=== PATIENT | male | born 1985 | race Caucasian/White ===

== ENCOUNTER 2020-02-07 11:58 | Emergency (ER) | payer SELFPAY ==
[~2020-02-07] VITALS: Ht 190.5 cm; Wt 133.6 kg
--- NOTE | 2020-02-07 12:45 | REP ---
INDICATION: right ankle pain s/p fall COMPARISON: None. TECHNIQUE: AP, lateral, bilateral oblique views. FINDINGS: There is an mildly displaced oblique fracture of the distal fibular metaphysis and fracture of the posterior malleolus with overlying soft tissue swelling. IMPRESSION: Fractures of the distal fibular metaphysis and posterior malleolus with overlying soft tissue swelling. <Electronically signed by Maynor Gurrola > 02/07/20 [id number]
--- NOTE | 2020-02-07 13:21 | REP ---
INDICATION: further evaluate RLE injury; ortho request COMPARISON: None. TECHNIQUE: AP, lateral, bilateral oblique and sunrise views. FINDINGS: The osseous structures and joint spaces are intact and normal. There is no evidence for acute fracture or dislocation. No joint effusion is appreciated. Surrounding soft tissues are unremarkable. No subcutaneous emphysema or radiodense foreign body. IMPRESSION: Normal examination. No acute fracture or dislocation. <Electronically signed by Maynor Gurrola > 02/07/20 [id number]
--- NOTE | 2020-02-07 13:22 | REP ---
INDICATION: further evaluate RLE injury; ortho request COMPARISON: None. TECHNIQUE: AP, lateral views of the right tibia/fibula. FINDINGS: There is an oblique fracture the distal fibular metaphysis and mildly displaced posterior malleolar fracture. IMPRESSION: Fracture of the posterior malleolus and distal fibular metaphysis. <Electronically signed by Maynor Gurrola > 02/07/20 [id number]
--- NOTE | 2020-02-07 16:09 | REP ---
INDICATION: post reduction COMPARISON: 02/07/2020 at 12:28 p.m. TECHNIQUE: Portable AP and lateral views of the right ankle. FINDINGS: Patient is status post cast placement for oblique distal fibular metaphyseal and posterior malleolar fractures. IMPRESSION: Status post cast placement for fibular and posterior malleolar fractures. <Electronically signed by Maynor Gurrola > 02/07/20 [id number]
--- NOTE | 2020-02-07 17:12 | REP ---
INDICATION: further evaluate right ankle. COMPARISON: None. TECHNIQUE: Axial noncontrast images through the right ankle with coronal and sagittal reformations. This CT examination was performed using the following dose reduction techniques: Automated exposure control, adjustment of mA and/or kv according to the patient's size, and use of iterative reconstruction technique. FINDINGS: There is an oblique nondisplaced fracture through the distal fibular metaphysis extending to the fibular tip. There is a somewhat comminuted fracture of the posterior malleolus extending through the posterior aspect of the articular surface of the distal tibia. Surrounding intra-articular posttraumatic infiltration and suspected small amount of hemarthrosis noted. Talus, calcaneus, tarsal bones, and visualized portions of the metatarsal bones are intact. IMPRESSION: Fractures of the distal fibula/lateral malleolus and posterior malleolus. <Electronically signed by Maynor Gurrola > 02/07/20 0232
[2020-02-07] MEDS ORDERED: NORC1TAB7 PO (17:29)
[2020-02-07 17:36] VITALS: BP 122/72
--- NOTE | 2020-02-08 10:26 | CR ---
CONSULTATION DATE: 02/07/2020 CONSULTING SERVICE: Orthopedic surgery. CONSULTING PHYSICIAN: Naun Glass M.D. HISTORY OF PRESENT ILLNESS: This is a 34-year-old male with a right bimalleolar ankle fracture closed, which was sustained with a ground level fall after slipping on ice on 02/07/2020. The patient presented to the [facility] for further evaluation and treatment regarding his right ankle distal fibular fracture and posterior malleolus fracture. The patient underwent the appropriate radiographs of the right ankle, right leg, and right knee. Orthopedic surgery was consulted for further evaluation and treatment. PAST MEDICAL HISTORY: Denies. PAST SURGICAL HISTORY: Dental surgery. MEDICATION ALLERGIES: None reported. CURRENT MEDICATIONS: None. SOCIAL HISTORY: This is a half-pack a day smoker with a 10-pack year history. The patient reportedly drinks 14-18 beers daily and denies IV drug use. REVIEW OF SYSTEMS: A 14-point review of systems is negative unless is otherwise described in the HPI above. PHYSICAL EXAMINATION: The patient was alert to person, time, and place. On right lower extremity exam, the patient has 2+ dorsalis pedis and posterior tibial arterial pulse. He had significant swelling about the right ankle. The patient had ecchymosis about the lateral aspect of his right ankle. The patient had 5/5 motor strength to the EHL, FHL, tibial, gastroc, and peroneal musculature. He had sensation intact to light touch to the deep and superficial peroneal, sural, saphenous, and tibial nerve distributions. IMAGING: Radiographs of the patient's right ankle demonstrate a spiral fracture of the distal fibula, as well as posterior malleolus fracture of the distal tibia. There was some mild lateral translation of the talus with some tibiofibular clear space appreciated. Post-reduction radiographs demonstrate the talus, which is appropriately reduced within the mortise. The lateral projection demonstrates the talus to be reduced within the mortise with a splint appropriately placed in appropriate dorsiflexion. The patient underwent post-reduction radiographs, which demonstrated appropriately reduced ankle. The patient did undergo advanced imaging with a CT of the right ankle demonstrating posterior malleolus consisting of approximately 20% of the articular surface with a spiral fracture of the distal fibula. IMPRESSION: This is a 34-year-old male with a right ankle bimalleolar fracture, which will likely require open reduction internal fixation after 10-14 days and after the right ankle swelling subsides. PLAN: This patient with a right ankle bimalleolar fracture will require open reduction internal fixation of the patient's right ankle injury. However, given the swelling, this will be done within 10-14 days. The patient was appropriately reduce and placed in an L&U splint with appropriate padding. The patient will follow-up with [facility] within 7 days for preoperative planning for the aforementioned open reduction internal fixation, which will likely be required, for the patient's right ankle injury. The patient was discharged home with the appropriate follow-up instructions from [facility].
== END 2020-02-07 17:44 | disposition home or self-care (01) ==
LOC: M ED 11:58 → EDBD 11:58 → M ED 17:44
DX: S82.841A Displaced bimalleolar fracture of right lower leg, initial encounter for closed fracture (principal); W00.0XXA Fall on same level due to ice and snow, initial encounter; Y92.018 Other place in single-family (private) house as the place of occurrence of the external cause; F17.210 Nicotine dependence, cigarettes, uncomplicated
CPT/HCPCS: 27810; 73564; 73590; 73600; 73610; 73700; 99284; U0002

== ENCOUNTER → 2020-02-24 | Outpatient (CLI) | payer SELFPAY ==
[~2020-02-24] MED LIST: NORC1TAB7 PO
== END ==
LOC: M LABSMTC 09:50
PROVIDERS: ATTEND Anesthesiology
DX: Z01.812 Encounter for preprocedural laboratory examination (principal); Z20.822 Contact with and (suspected) exposure to COVID-19

== ENCOUNTER 2020-02-26 14:34 | Day surgery (SDC) | payer SELFPAY ==
[~2020-02-26] VITALS: Ht 190.5 cm; Wt 136.0 kg
[~2020-02-26 14:34] MED LIST changes: +LIDOCAINE 1% MDV 20ML VIAL SQ PRN; +LR 1,000 ML IV ONE; +ceFAZolin SOD 2 GM in IV 1 EA IV ONE
--- OUTSIDE RECORDS SUMMARY | 2020-02-26 14:38 | CCD ---
Author Author [facility] Organization [facility] Address Unknown Phone Unavailable Care Team Providers Care Medical Surgical Tech Name Role Phone MCELHERAN, SANDRO PA Unavailable Unavailable MCELHERAN, SANDRO PA Unavailable Unavailable MCELHERAN, SANDRO PA Unavailable Unavailable MCELHERAN, SANDRO PA Unavailable Unavailable MCELHERAN, SANDRO PA Unavailable Unavailable MCELHERAN, SANDRO PA Unavailable Unavailable MCELHERAN, SANDRO PA Unavailable Unavailable MCELHERAN, SANDRO PA Unavailable Unavailable MCELHERAN, SANDRO PA Unavailable Unavailable MCELHERAN, SANDRO PA Unavailable Unavailable MCELHERAN, SANDRO PA Unavailable Unavailable MCELHERAN, SANDRO PA Unavailable Unavailable MCELHERAN, SANDRO PA Unavailable Unavailable MCELHERAN, SANDRO PA Unavailable Unavailable MCELHERAN, SANDRO PA Unavailable Unavailable MCELHERAN, SANDRO PA Unavailable Unavailable MCELHERAN, SANDRO PA Unavailable Unavailable MCELHERAN, SANDRO PA Unavailable Unavailable MCELHERAN, SANDRO PA Unavailable Unavailable MCELHERAN, SANDRO PA Unavailable Unavailable MCELHERAN, SANDRO PA Unavailable Unavailable MCELHERAN, SANDRO PA Unavailable Unavailable MCELHERAN, SANDRO PA Unavailable Unavailable MCELHERAN, SANDRO PA Unavailable Unavailable MCELHERAN, SANDRO PA Unavailable Unavailable MCELHERAN, SANDRO PA Unavailable Unavailable MCELHERAN, SANDRO PA Unavailable Unavailable MCELHERAN, SANDRO PA Unavailable Unavailable EMMA CASTILLO MD Unavailable Unavailable EMMA CASTILLO MD Unavailable Unavailable EMMA CASTILLO MD Unavailable Unavailable EMMA CASTILLO MD Unavailable Unavailable EMMA CASTILLO MD Unavailable Unavailable EMMA CASTILLO MD Unavailable Unavailable EMMA CASTILLO MD Unavailable Unavailable EMMA CASTILLO MD Unavailable Unavailable EMMA CASTILLO MD Unavailable Unavailable EMMA CASTILLO MD Unavailable Unavailable EMMA CASTILLO MD Unavailable Unavailable EMMA CASTILLO MD Unavailable Unavailable MARKWITH, EMMA MD Unavailable Unavailable MARKWITH, EMMA MD Unavailable Unavailable MARKWITH, EMMA MD Unavailable Unavailable MARKWITH, EMMA MD Unavailable Unavailable MARKWITH, EMMA MD Unavailable Unavailable MARKWITH, EMMA MD Unavailable Unavailable MARKWITH, EMMA MD Unavailable Unavailable MARKWITH, EMMA MD Unavailable Unavailable MARKWITH, EMMA MD Unavailable Unavailable MARKWITH, EMMA MD Unavailable Unavailable MARKWITH, EMMA MD Unavailable Unavailable MARKWITH, EMMA MD Unavailable Unavailable MARKWITH, EMMA MD Unavailable Unavailable MARKWITH, EMMA MD Unavailable Unavailable MARKWITH, EMMA MD Unavailable Unavailable MARKWITH, EMMA MD Unavailable Unavailable MARKWITH, EMMA MD Unavailable Unavailable MARKWITH, EMMA MD Unavailable Unavailable MARKWITH, EMMA MD Unavailable Unavailable MARKWITH, EMMA MD Unavailable Unavailable MARKWITH, EMMA MD Unavailable Unavailable Re-disclosure Warning The records that you are about to access may contain information from federally-assisted alcohol or drug abuse programs. If such information is present, then the following federally mandated warning applies: This information has been disclosed to you from records protected by federal confidentiality rules (42 CFR part 2). The federal rules prohibit you from making any further disclosure of this information unless further disclosure is expressly permitted by the written consent of the person to whom it pertains or as otherwise permitted by 42 CFR part 2. A general authorization for the release of medical or other information is NOT sufficient for this purpose. The Federal rules restrict any use of the information to criminally investigate or prosecute any alcohol or drug abuse patient.The records that you are about to access may contain highly sensitive health information, the redisclosure of which is protected by Article 27-F of the [facility] Public Health law. If you continue you may have access to information: Regarding HIV / AIDS; Provided by facilities licensed or operated by the [facility] Office of Mental Health; or Provided by the [facility] Office for People With Developmental Disabilities. If such information is present, then the following [facility] mandated warning applies: This information has been disclosed to you from confidential records which are protected by state law. State law prohibits you from making any further disclosure of this information without the specific written consent of the person to whom it pertains, or as otherwise permitted by law. Any unauthorized further disclosure in violation of state law may result in a fine or care home sentence or both. A general authorization for the release of medical or other information is NOT sufficient authorization for further disc losure. Encounters Encounter Providers Location Date Indications Data Source(s ) Office Visit Attender: SANDRO BOATENG Physical Therapy 02/19/2020 08:45:00 AM EST [facility] ([facility]) Office Visit Attender: SANDRO BOATENG Physical Therapy 02/10/2020 08:30:00 AM EST [facility] ([facility]) Outpatient Attender: EMMA CASTILLO MD Physical Therapy 03:24:00 PM EST [facility] ([facility]) Medications Medication Brand Name Start Date Product Form Dose Route Admi nistrative Instructions Pharmacy Instructions Status Indications Reaction Description Data Source(s) 5-325 mg 02/07/2020 12:00:00 AM EST tablet 15 TAKE ONE TABLET BY MOUTH THREE TIMES A DAY NEEDED FOR PAIN MAX=3TABS/DAY TAKE ONE TABLET BY MOUTH THREE TIMES A DAY NEEDED FOR PAIN MAX=3TABS/DAY SOLD: 02/08/2020 [facility] Insurance Providers Payer name Policy type / Coverage type Policy ID Covered democrat ID Covered democrat's relationship to nelson Policy Nelson Plan Information SELF PAY ONLY [id number] Surgeries/Procedures Procedure Description Date Indications Data Source(s) APPLICATION SHORT LEG CAST BELOW KNEE-TOE 02/19/2020 1 2:00:00 AM EST [facility] ([facility]) RADEX ANKLE COMPLETE MINIMUM 3 VIEWS 02/19/2020 12:00: 00 AM EST [facility] ([facility]) FX Bimalleolar Ankle W/Manipulation 02/07/2020 12:00:0 0 AM EST [facility] ([facility]) Results ID Date Data Source [id number] 02/24/2020 09:45:00 AM EST [facility] Name Value Range Interpretation Code Description Data Verito rce(s) Supporting Document(s) SARS coronavirus 2 RNA [Presence] in Res piratory specimen by [facility]CL[facility] with probe detection NEGATIVE [facility] This lab was ordered by [facility] a nd reported by [facility]. ID Date Data Source [id number] 02/07/2020 01:18:00 PM EST [facility] Name Value Range Interpretation Code Description Data Verito rce(s) Supporting Document(s) SARS coronavirus 2 RNA [Presence] in Res piratory specimen by [facility]CL[facility] with probe detection [facility] This lab was ordered by [facility] a nd reported by [facility]. Procedure Vital Signs ID Date Data Source UNK Name Value Range Interpretation Code Description Data Source(s) Body temperature 97.3 [degF] 97.3 [degF] [facility] ([facility]) Body mass index (BMI) [Ratio] 36.6 kg/m2 36.6 k g/m2 [facility] ([facility]) Body weight 293.00 [lb_av] 293.00 [lb_av] [facility] ([facility]) Body height 75 [in_i] 75 [in_i] [facility] ([facility]) 6'3" Body temperature 97.0 [degF] 97.0 [degF] [facility] ([facility])
--- OUTSIDE RECORDS SUMMARY | 2020-02-26 14:38 | CCD | Continuity of Care Document ---
Author Author Dandre GONZALEZ MD Organization Unknown Address [address] [place] [id number] Phone [phone] Care Team Providers Care Macadam Raker Name Role Phone Richar Pedraza MD AUT Unavailable Problems Description No Information Available Social History Type Date Description Comments Sex Unknown Cigarette Use current cigarette smoker Tobacco Use Start: Unknown Patient is a current cigarette smoker, smokes every day ETOH Use Currently consumes alcohol Allergies, Adverse Reactions, Alerts Description No Known Drug Allergies Medications Description No Information Available Immunizations Description No Information Available Vital Signs Date Vital Result Comment 02/19/2020 10:07am Body Temperature 97.3 F 02/10/2020 9:47am Body Temperature 97.0 F Height 75 inches 6'3" Weight 293.00 lb BMI (Body Mass Index) 36.6 kg/m2 Results Description No Information Available Procedures Date Code Description Status 02/19/2020 54271 X-Ray Ankle Complete Completed 02/19/2020 15195 Apply Cast Short Leg Completed 02/07/2020 86918 FX Bimalleolar Ankle W/Manipulat ion Completed Medical Devices Description No Information Available Encounters Type Date Location Provider Dx Diagnosis Office Visit 02/19/2020 9:45a [facility] S82.841D Displ bimalleol fx r low leg, subs for clos fx w routn heal Office Visit 02/10/2020 9:30a [facility] S82.841D Displ bimalleol fx r low leg, subs for clos fx w routn heal Office Visit 02/07/2020 4:24p [facility] Gonzalez MD S82. 841A Displaced bimalleolar fracture of right lower leg, init Assessments Date Code Description Provider 02/19/2020 S82.841D Displaced bimalleola r fracture of right lower leg, subsequent encounter for closed fracture with routine healing Junie Ferrer 02/10/2020 S82.841D Displaced bimalleola r fracture of right lower leg, subsequent encounter for closed fracture with routine healing Junie Ferrer 02/07/2020 S82.841A Displaced bimalleola r fracture of right lower leg, initial encounter for closed fracture Bill Gonzalez MD Plan of Treatment No Information Available Functional Status Description No Information Available Mental Status Description No Information Available Referrals Description No Information Available
--- OUTSIDE RECORDS SUMMARY | 2020-02-26 14:38 | CCD | Continuity of Care Document ---
Author Author [facility]re RINALDI P.A. Organization Unknown Address [address] [place] [id number] Phone [phone] Care Team Providers Care Records Officer Name Role Phone Richar Pedraza MD AUTNatalie Unavailable Problems Description No Information Available Social History Type Date Description Comments Sex Unknown Allergies, Adverse Reactions, Alerts Description No Information Available Medications Description No Information Available Immunizations Description No Information Available Vital Signs Date Vital Result Comment 02/10/2020 9:47am Body Temperature 97.0 F Height 75 inches 6'3" Weight 293.00 lb BMI (Body Mass Index) 36.6 kg/m2 Results Description No Information Available Procedures Description No Information Available Medical Devices Description No Information Available Encounters Description No Information Available Assessments Date Code Description Provider 02/10/2020 S82.61xA Displaced fracture o f lateral malleolus of right fibula, initial encounter for closed fracture Junie Ferrer Plan of Treatment 02/10/2020 - Junie Ferrer* S82.61xA Displaced fracture of lateral malleolus of right fibula, initial encounter for closed fracture* Follow up:* 1 week with [facility] for rt ankle recheck with xrays out of splint Functional Status Description No Information Available Mental Status Description No Information Available Referrals Description No Information Available
[2020-02-26] MEDS ORDERED: fentaNYL 250 MCG/5 ML INJECTION (J3010) As Ordered ONE (17:49)
[2020-02-26] MEDS ORDERED: MIDAZOLAM INJ 2MG/2ML VIAL (J2250 PER 1MG) As Ordered ONE ×2 (17:50→18:13)
[2020-02-26] MEDS ORDERED: LIDOCAINE 2% 100MG/5ML SDV (FOR ANES.) As Ordered ONE (17:51)
[2020-02-26] MEDS ORDERED: propofoL 200 MG/20 ML VIAL As Ordered ONE (17:51)
[2020-02-26] MEDS ORDERED: ROCURONIUM BROMIDE 50 MG/5 ML VIAL As Ordered ONE ×4 (17:51→23:27)
[2020-02-26] MEDS ORDERED: dexameTHASONE 4 MG/ML 1ML VIAL (J1100 PER 1MG) As Ordered ONE ×2 (18:11→19:24)
[2020-02-26] MEDS ORDERED: dexameTHASONE 10MG/1ML VIAL PRES.FREE (J1100 PER 1MG) As Ordered ONE (18:13)
[2020-02-26] MEDS ORDERED: fentaNYL 100 MCG/2 ML INJECTION (J3010) As Ordered ONE (18:13)
[2020-02-26] MEDS ORDERED: ROPIvacaine 0.5% 30ML INJECTION (J2795 PER 1MG) As Ordered ONE (18:13)
[2020-02-26] MEDS ORDERED: ACETAMINOPHEN 1000MG 100ML IV BTL (OFIRMEV) (J0131 PER 10MG) As Ordered ONE (20:52)
[2020-02-26] MEDS ORDERED: KETOROLAC 60MG 2ML VIAL As Ordered ONE (20:53)
[2020-02-26] MEDS ORDERED: SUGAMMADEX SODIUM 500 MG/5 ML VIAL (BRIDION) As Ordered ONE (20:53)
[2020-02-26] MEDS ORDERED: ONDANSETRON 4MG/2ML VIAL As Ordered ONE (20:55)
[2020-02-26] MEDS ORDERED: TRANEXAMIC ACID 100 MG/ML 10ML VIAL As Ordered ONE (21:52)
[2020-02-27] MEDS ORDERED: ceFAZolin 2 GM/D5W 50 ML IV BAG (J0690 PER 500MG) As Ordered ONE (00:09)
[2020-02-27] MEDS ORDERED: ONDANSETRON 4MG/2ML VIAL IV PRN (01:00)
[2020-02-27] MEDS ORDERED: LR 1,000 ML IV SCH (01:00)
[2020-02-27] MEDS ORDERED: KETOROLAC 30 MG/ML 1ML VIAL IV PRN (01:00)
[2020-02-27] MEDS: fentaNYL 100 MCG/2 ML INJECTION (J3010) IV PRN ×2 (01:35→01:58)
[2020-02-27] MEDS: oxyCODONE 5MG TAB PO PRN ×4 (01:36→02:41)
[2020-02-27] MEDS ORDERED: oxyCODONE 5MG TAB As Ordered ONE (02:02)
[2020-02-27 02:30] VITALS: BP 132/81
[2020-02-27 03:00] VITALS: BP 135/82
[2020-02-27] MEDS ORDERED: DOCUSATE SODIUM 100MG CAPSULE PO PRN (03:15)
[2020-02-27] MEDS ORDERED: ONDANSETRON 4MG/2ML VIAL IV SCH (03:15)
[2020-02-27] MEDS ORDERED: PERCOCET 5MG/325MG TAB PO PRN ×2 (03:15→10:30)
[2020-02-27 05:41] VITALS: BP 127/79
[2020-02-27] MEDS ORDERED: PERC5TAB12 PO (06:04)
[2020-02-27] MEDS ORDERED: ECOT81TA5 PO (06:06)
[2020-02-27] MEDS ORDERED: ceFAZolin SOD 2 GM in IV 1 EA IV ONE (07:15)
--- NOTE | 2020-02-27 10:25 | RO ---
OPERATIVE NOTE DATE OF OPERATION: 02/26/2020 PREOPERATIVE DIAGNOSIS: Right ankle bimalleolar fracture. POSTOPERATIVE DIAGNOSIS: Right ankle bimalleolar fracture. PROCEDURE: Right ankle open reduction and internal fixation. SURGEON: Naun Glass MD PNEUMATIC TUBE FITTER: None. ANESTHESIA: GETA. FINDINGS: The patient had a posterior malleolus fracture and a spiral distal fibular fracture. INDICATIONS: This was a 34-year-old male who slipped on ice two weeks prior while carrying groceries from his truck to his house. The patient presented to [facility] for further evaluation and treatment. His right ankle was reduced and then splinted in the L&U splint. The patient was followed up in [facility] and was indicated for right ankle open reduction and internal fixation for his unstable ankle fracture. TOURNIQUET TIME: 204 minutes total, 120 minutes with tourniquet holiday for 40 minutes and then additional 84 minutes. IV ANTIBIOTICS: 2 gm Ancef x2 for total of 4 gm of Ancef. IV FLUIDS: Please see anesthesia report, 1 gm TXA. IMPLANTS: Synthes. CULTURES: None. SPECIMEN: None. ESTIMATED BLOOD LOSS: 75 mL. DESCRIPTION OF PROCEDURE: The patient was met in the preoperative holding area where the patient's operative extremity was signed, the patient's consent was confirmed to be correct, and the patient's identity was confirmed to be correct. The patient was then transported to the operating theater where he was placed prone on radiolucent flat top secured to the bed, safety straps secured the patient to the bed. All bony prominences were well padded. The contralateral lower extremity had SCD placed. A time out was called to confirm correct patient, correct operative extremity and correct consent, and all staff was in agreement. The patient was then draped in the usual sterile fashion. We began the case by obtaining fluoroscopic imaging of the ankle fracture in AP and lateral views. We then made a posterolateral approach utilizing the interval between the peroneal tendons and the FHL. We incised the skin using a scalpel. We then incised the FHL fascia, mobilized the FHL medially in order to expose the posterior malleolus fracture. Using curet, Joker, scalpel we cleaned the fracture site and the healing callus which was quite extensive given the 2 weeks of healing the patient had had. Once this was cleaned we fixed the posterior malleolus in place using two thin wires, obtained fluoroscopic imaging demonstrating that we were satisfied with the fracture reduction. After we mobilized the fracture and reduced it we mobilized it once more in order to tamp the posterior articular cartilage into place. There was some comminution of the posterior aspect of the articular cartilage which was tamped nicely into position using the bone tamp. We then closed the book on the posterior malleolus and again secured it with additional K-wires. We then placed a plate on the posterior aspect of the tibia overlying the posterior malleolus fracture and using axillary screw to buttress the posterior malleolus into position. We then placed two additional cortical screws into the proximal aspect of the plate in order to further buttress the posterior malleolus into position. We then placed two additional locking screws in the distal aspect of the plate in order to access rafting screws and hold the plate into position distally giving us a total of five screws, three cortical screws proximal to the fracture and two locking screws distal to the fracture. We then turned our attention to the fibula. While still utilizing the posterolateral skin incision we mobilized peroneal tendon medially in order to gain access to the posterior aspect of the fibula. We cleaned the spiral fracture using a curet, scalpel, laminar manager retail sales and immobilizing appropriately we were able to provisionally reduce the fibular fracture using lobster claw and [id number] bone reducing clamp. At this point in time we placed three 2.7 mm lag screw technique in order to provisionally fix the fibular fracture. At this point in time we obtained fluoroscopic images demonstrating that we were satisfied with fibular length and reduction. We then placed lateral distal fibular locking neutralization plate into position using thin wires and confirmed with fluoroscopy and we were satisfied with position. We secured it distally with three locking screws and proximally using two cortical locking screws in neutralization mode. At this point we obtained final fluoroscopic imaging demonstrating that we were satisfied with both reduction as well as implant placement to include posterior malleolus plate as well as distal fibular locking neutralization plate and lag screws. We performed dorsiflexion, external rotation on stress exam and there was no widening of syndesmosis with appropriate tib-fib clear space and without lateral translation of the talus. We copiously irrigated the surgical site using 3liters normal saline. We closed the periosteum over the lateral fibular plate with #0 Vicryl and then closed the dermal layer using 2-0 Vicryl and closed the epidermis using 3-0 nylon with running stitch. We placed Xeroform over the surgical site followed by 4 x 4s, Webril, and then placed the patient in well padded L&U splint with appropriate dorsiflexion. The patient was extubated without complication and transported to the postanesthesia care unit. The patient will be nonweightbearing to the right lower extremity for 6 weeks. The patient's obtained his postoperative pain medications at a local pharmacy. The patient will return to [facility] in 2 weeks for transition of splint to Cam boot so that he can shower at home and initiate physical therapy which will include range of motion exercises about his right ankle. At the 6 week coleman if he has clinical and radiographic evidence of healing he will be transitioned to weightbearing as tolerated in a Cam boot and then weightbearing as tolerated without Cam boot at 2 additional weeks at a total of 8 weeks postsurgical time. The patient will follow up with TASNEEM Donis at [facility]. The patient received the appropriate pain medications, Zofran and Colace for his postoperative pain. The patient did receive a nerve block which will likely well off in 12-16 hours. [facility]
--- NOTE | 2020-02-27 13:27 | REP ---
INDICATION: ORIF RIGHT ANKLE. COMPARISON: 02/07/2020. If for TECHNIQUE: Multiple C-arm views right ankle. FINDINGS: Metallic plate and multiple metallic screws placed in the distal tibia. A metallic plate and multiple metallic screws placed in the distal fibula. On final images the osseous structures appear well aligned. The ankle mortise appears anatomic. IMPRESSION: 3 minutes 48 seconds fluoroscopy time utilized. <Electronically signed by Pio Castano > 02/27/20 [id number]
[2020-02-27] MEDS ORDERED: ASPIRIN 81 MG ENTERIC TAB PO SCH (21:00)
== END 2020-02-27 11:55 | disposition home or self-care (01) ==
LOC: M SDC 14:34 → M MS5PR 02-27 02:32 → M SDC 02-27 11:55
PROVIDERS: ATTEND Orthopaedic Surgery
DX: S82.841A Displaced bimalleolar fracture of right lower leg, initial encounter for closed fracture (principal); W00.0XXA Fall on same level due to ice and snow, initial encounter; Y92.89 Other specified places as the place of occurrence of the external cause; Y93.9 Activity, unspecified; Y99.9 Unspecified external cause status; Z91.81 History of falling
CPT/HCPCS: 27814; 64445; 76000; C1713; J0131; J0690; J1100; J1885; J2250; J2405; J3010

== ENCOUNTER → 2020-04-18 | Outpatient (CLI) | payer BC, OTHER ==
[~2020-04-18] MED LIST changes: +ECOT81TA5 PO; -LIDOCAINE 1% MDV 20ML VIAL SQ PRN; -LR 1,000 ML IV ONE; +PERC5TAB12 PO; -ceFAZolin SOD 2 GM in IV 1 EA IV ONE
[2020-04-18 12:11] LABS: BASO % 0.5 % (0.0-1.0); EOS # 0.1 10^3/uL (0.0-0.5); EOS % 1.5 % (0.0-3.0); HEMATOCRIT 44.4 % (42.0-52.0); HEMOGLOBIN 14.5 g/dl (13.5-17.5); LYMPH # 2.5 10^3/uL (1.5-5.0); LYMPH % 29.2 % (24.0-44.0); MEAN CORPUSCULAR HEMOGLOBIN 29.5 pg (27.0-33.0); MEAN CORPUSCULAR HGB CONC 32.7 g/dl (32.0-36.5); MEAN CORPUSCULAR VOLUME 90.2 fl (80.0-96.0); MONO # 0.6 10^3/uL (0.0-0.8); MONO % 7.1 % (2.0-8.0); NEUTROPHILS # 5.2 10^3/uL (1.5-8.5); NEUTROPHILS % 61.3 % (36.0-66.0); PLATELET COUNT, AUTOMATED 248 10^3/uL (150-450); RED BLOOD COUNT 4.92 10^6/uL (4.30-6.10); WHITE BLOOD COUNT 8.5 10^3/uL (4.0-10.0)
--- NOTE | 2020-04-18 12:35 | REP ---
INDICATION: PAIN IN RIGHT ANKLE AND JOINTS OF RIGHT FOOT/LABS 1ST COMPARISON: 02/07/2020 TECHNIQUE: AP, lateral, bilateral oblique views. FINDINGS: Patient is noted to be status post open reduction and fixation with satisfactory alignment at the previous fracture sites. No acute fracture or dislocation. A mild osteopenia and underlying mottled appearance to the osseous structures consistent with posttraumatic reflex sympathetic osteodystrophy IMPRESSION: Posttraumatic changes. No acute fracture or dislocation. <Electronically signed by Maynor Gurrola > 04/18/20 [id number]
[2020-04-18 12:40] LABS: ERYTHROCYTE SEDIMENTATION RATE 24 mm/hr (0-15)
[2020-04-18 12:45] LABS: ALBUMIN 4.2 GM/DL (3.2-5.2); BILIRUBIN,TOTAL 0.4 MG/DL (0.2-1.0); C REACTIVE PROTEIN QUANTITATIV 0.42 MG/DL (0.00-0.30); CALCIUM LEVEL 9.1 MG/DL (8.5-10.1); CREATININE FOR GFR 1.46 MG/DL (0.70-1.30); GLOMERULAR FILTRATION RATE 58.8 (>60); POTASSIUM SERUM 4.2 MEQ/L (3.5-5.1); TOTAL PROTEIN 7.8 GM/DL (6.4-8.2)
== END ==
LOC: M LAB 11:41
PROVIDERS: ATTEND Physician Assistant
DX: L03.115 Cellulitis of right lower limb (principal); M25.571 Pain in right ankle and joints of right foot

== ENCOUNTER → 2020-05-17 | Outpatient (CLI) | payer BC ==
[2020-05-17 13:29] LABS: BLOOD UREA NITROGEN 18 MG/DL (7-18); CALCIUM LEVEL 9.4 MG/DL (8.5-10.1); CARBON DIOXIDE LEVEL 28 MEQ/L (21-32); CHLORIDE LEVEL 104 MEQ/L (98-107); GLOMERULAR FILTRATION RATE > 60.0 (>60); GLUCOSE, FASTING 102 MG/DL (70-100); PHOSPHORUS LEVEL 4.1 MG/DL (2.5-4.9); POTASSIUM SERUM 4.1 MEQ/L (3.5-5.1); SODIUM LEVEL 138 MEQ/L (136-145)
== END ==
LOC: M WUC 08:58
PROVIDERS: ATTEND Physician Assistant
DX: R94.4 Abnormal results of kidney function studies (principal)

== ENCOUNTER → 2020-09-24 | Outpatient (CLI) | payer OTHER ==
--- NOTE | 2020-09-24 14:00 | REP ---
INDICATION: RT ANKLE PAIN DISPL BIMALLEO FX ? HARDWARE FAILUR. COMPARISON: Preoperative examination of 02/07/2020 which by report is the right ankle TECHNIQUE: 2 x [address] through the right ankle was obtained and reconstructed in both sagittal and coronal planes FINDINGS: Since the last examination the patient has undergone ORIF of the previously described distal tibial and fibular fractures. [place] artifact from the internal fixation plate and screws limits the detail. The bones are demineralized. The internal fixation plate and fixing screws have an intact appearance. The distal fibular and tibial fractures appear to have healed although somewhat difficult to assess due to the spray artifact caused by the metal. There is no evidence of an acute fracture. The mortise is intact. The abnormal widening of the mortise seen in the prior exam is no longer present. There appears to be some fluid in the posterior tibiotalar joint and within the medial soft tissues. This is difficult to assess on CT even without the aforementioned artifact. IMPRESSION: 1. 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 2. Status post ORIF with findings as described above. <Electronically signed by Ramos Barrios > 09/24/20 [id number]
== END ==
LOC: M PLAIMG 13:03
PROVIDERS: ATTEND Physician Assistant
DX: S82.841D Displaced bimalleolar fracture of right lower leg, subsequent encounter for closed fracture with routine healing (principal); X58.XXXD Exposure to other specified factors, subsequent encounter; Y92.89 Other specified places as the place of occurrence of the external cause; Y93.89 Activity, other specified; Y99.8 Other external cause status; Z98.890 Other specified postprocedural states

== ENCOUNTER → 2023-03-13 | Outpatient (CLI) | payer BC | LOC: M WUC 10:06 | PROVIDERS: ATTEND Physician Assistant | DX: M54.50 Low back pain, unspecified (principal); M47.816 Spondylosis without myelopathy or radiculopathy, lumbar region ==

== ENCOUNTER 2023-04-09 03:15 | Emergency (ER) | payer BC ==
[~2023-04-09] VITALS: Ht 190.5 cm; Wt 127.5 kg
[2023-04-09] MEDS: methylPREDNISolone 125MG 2ML VIAL IM ONE (05:36)
[2023-04-09] MEDS: diazePAM 10MG/2ML SYRINGE IM ONE (05:38)
[2023-04-09] MEDS ORDERED: VALI5TAB PO (06:11)
[2023-04-09] MEDS ORDERED: MEDR4PAK PO (06:11)
[2023-04-09 06:15] VITALS: BP 151/93; TEMP 96.9; O2SAT 99
== END 2023-04-09 06:46 | disposition home or self-care (01) ==
LOC: M ED 03:15
DX: M54.32 Sciatica, left side (principal); M51.26 Other intervertebral disc displacement, lumbar region; M47.816 Spondylosis without myelopathy or radiculopathy, lumbar region; M41.86 Other forms of scoliosis, lumbar region; F17.200 Nicotine dependence, unspecified, uncomplicated; Z79.82 Long term (current) use of aspirin
CPT/HCPCS: 72131; 72192; 96372; 99283; J2930; J3360